=== PATIENT | female | born 1955 | race Caucasian/White ===

== ENCOUNTER 2017-01-23 08:24 | Observation (INO) ==
[2017-01-23] MEDS ORDERED: METOCLOPRAMIDE 10 MG/2 ML VIAL IV STA (09:53)
[2017-01-23] MEDS ORDERED: ONDANSETRON 4 MG/2 ML VIAL IV STA ×2 (09:53→12:06)
[2017-01-23] MEDS ORDERED: ALUM/MAG/SIMETH/LIDO VISC 1:1 30 ML BOTTLE PO STA (09:53)
[2017-01-23] MEDS ORDERED: PANTOPRAZOLE 40 MG VIAL IV STA (09:53)
[2017-01-23] MEDS ORDERED: SODIUM CHLORIDE 0.9% 1,000 ML IV STA (09:53)
--- NOTE | 2017-01-23 09:57 | Emergency Department Note ---
Arrival - Arrival Chief Complaint: Abdominal / Flank Pain Stated Complaint: abd pain,vomiting ED Nursing Triage Note: upper abd pain with vomiting for the past three days. reports that she has episodes about every two hours of pain and then vomiting. denies diarrhea. was seen three years ago with similar s/s and started on prilosec Mode of Arrival: Ambulatory Limitations: No Limitations Source: Patient Time Seen by Provider: 01/23/17 09:53 - History of Present Illness HPI Narrative: This 61-year-old white female presents with 3 days of nausea and vomiting and in fact has had 5 bouts of vomiting this a.m. The patient does complain of heartburn, belching, and water brash with a long-standing history of reflux. She denies a history of peptic ulcer disease, pancreatitis, colitis, gallbladder disease, diarrhea, melena, right red blood per rectum, chills, or fever. Other than nausea and some abdominal cramping she is in no acute medical distress. Onset (ago): day(s) (Patient presents with 3 days of symptoms) Date of Last Menstrual Period: [facility] Allergies/Adverse Reactions: Allergies Allergy/AdvReac Type Severity Reaction Status Date / Time tetanus toxoid, adsorbed Allergy HIVES Verified 01/23/17 08:38 Home Medications: Home Medications Medication Instructions Recorded Confirmed Type Atorvastatin [Lipitor] 10 mg PO DAILY 01/23/17 01/23/17 History Losartan Potassium 100 mg PO DAILY 01/23/17 01/23/17 History Meloxicam 15 mg PO DAILY PRN 01/23/17 01/23/17 History Omeprazole [Prilosec] 20 mg PO DAILY 01/23/17 01/23/17 History Sertraline [Zoloft] 200 mg PO DAILY 01/23/17 01/23/17 History Review of System - Review of System 12 point system: reviewed and no additional remarkable complaints except as stated - Review of System Constitutional: Present: as per HPI Gastrointestinal: Present: as per HPI Medical,Surgical,& Family Hx - Medical History Cardio: History of: Hypertension Psychological: History of: Depression Gastrointestinal: History of: GERD - Social History Smoking Status: Current every day smoker Exam Physical Examination: GENERAL: Obese white female in no acute distress. HEENT: Normocephalic. No trauma. Moist mucous membranes. EOMI. PERRLA. ENT NML NECK: Supple. No adenopathy. CARDIAC: Regular. No murmurs. Heart rate 80 CHEST: Clear to auscultation. No respiratory distress. O2 sat 94 ABDOMEN: Soft. Tender mid epigastrium. Active bowel sounds. EXTREMITIES: No trauma. Normal ROM. No pedal edema. SKIN: No diaphoresis. No rash. NEURO: Alert. Neuro intact. No focal deficits. Vital Signs: Vital Signs Temperature 97.6 F 01/23/17 08:32 Pulse Rate 67 01/23/17 11:33 Respiratory Rate 18 01/23/17 11:33 Blood Pressure 176/100 01/23/17 11:33 O2 Sat by Pulse Oximetry 97 01/23/17 11:33 Course - Reevaluation(s) Reevaluation #1: Advised patient with her recurrent nausea and vomiting and findings on CT that we need admission for GI workup. - Consultations Consultation #1: Discussed with hospitalist service who will admit for further evaluation treatment. Results - Labs CBC & BMP: 01/23/17 10:25 01/23/17 10:25 - Impressions EKG: Sinus rhythm at 66 with normal VT interval and QRS duration. Normal ST segments. Normal EKG. - Diagnostic Findings Procedure: Abdominal x-ray: image reviewed by me, report reviewed by me (Gas patterns consistent with ileus versus early small bowel obstruction bowel gas patterns consistent with ileus or early small bowel obstruction), CT Abdomen and Pelvis: image reviewed by me, report reviewed by me (Evidence of duodenal wall thickening abutting the pancreatic head. Although no abnormality of pancreatic head, suggestive of cancer. 2 large nodes upper abdomen that could be the result of metastatic disease. Diffuse gastric wall thickening, diverticulosis without diverticulitis.) Disposition Clinical Impression: Duodenal wall thickening, Diffuse gastric wall thickening, Mesenteric adenopathy, Diverticulosis, Microscopic hematuria Case discussed with: patient Condition: Guarded Time of Disposition: 13:33
[2017-01-23] MEDS ORDERED: DICYCLOMINE 20 MG/2 ML AMP IM ONE ×2 (09:58→10:30)
--- NOTE | 2017-01-23 10:27 | XRay Report ---
Exam: XR abdomen 2V Date: 01/23/2017 9:54 AM Comparison: 12/20/2013 Indication: Generalized abdominal pain Technique:[Supine and erect abdomen] Findings: Mild gaseous distention of the small bowel in the left abdomen. Air-fluid levels on the erect film with no free air. Vascular calcifications with degenerative changes. Impression: Mild gaseous distention of the small bowel in the left abdomen which could be related to ileus, early SBO, etc. Follow-up x-ray may be helpful for further evaluation. PROCEDURE INTERPRETED AT [facility] DEPARTMENT OF RADIOLOGY Final Report Signed by: Dr. Katty Cedillo
[2017-01-23] MEDS ORDERED: METOCLOPRAMIDE 10 MG/2 ML VIAL ONE (10:30)
[2017-01-23] MEDS ORDERED: ONDANSETRON 4 MG/2 ML VIAL ONE ×2 (10:30→12:34)
[2017-01-23] MEDS ORDERED: ALUM/MAG/SIMETH/LIDO VISC 1:1 30 ML BOTTLE PO ONE (10:30)
[2017-01-23] MEDS ORDERED: PANTOPRAZOLE 40 MG VIAL IV ONE (10:30)
[2017-01-23 10:32] LABS: Basophils % 0.2 % (0.0-0.8); Eosinophils # 0.1 10*3/uL (0.0-0.87); Eosinophils % 0.6 % (0.00-10.9); Hematocrit 40.9 VOL% (35.7-47.0); Hemoglobin 13.8 GM/DL (12.0-16.0); Immature Granulocytes % 0.5 %; Immature Granulocytes Absolute 0.09 #; Lymphocytes # 1.9 10*3/uL (1.4-4.0); Lymphocytes % 10.6 % (21.3-54.2); Mean Corpuscular HGB Conc 33.7 GM/DL (32-36); Mean Corpuscular Hemoglobin 32 PG (27-34); Mean Corpuscular Volume 95.3 FL (87-102); Mean Platelet Volume 10.3 FL (9.6-12.0); Monocytes # 0.9 10*3/uL (0.11-0.8); Monocytes % 5.2 % (1.7-12.7); Neutrophils # 14.6 10*3/uL (1.4-7.4); Neutrophils % 82.9 % (38.7-73.9); Platelet Count 267 T/CUMM (130-400); Red Blood Count 4.29 MC/CUMM (3.8-5.5); Red Cell Distribution Width 12.9 % (9.3-17.3); White Blood Count 17.6 T/CUMM (4-12)
[2017-01-23] MEDS ORDERED: LEVOFLOXACIN INJ 750 MG in PREMIX 1 EACH IV STA (10:41)
[2017-01-23 10:58] LABS: Lactic Acid 0.9 MMOL/L (0.4-2.0)
[2017-01-23 11:12] LABS: Alanine Aminotransferase 22 U/L (13-56); Albumin 3.7 G/DL (3.4-5.0); Alkaline Phosphatase 125 U/L (45-117); Amylase 45 U/L (25-115); Aspartate Amino Transferase 13 U/L (0-37); Bilirubin,Total < 0.39 MG/DL (0.2-1.0); Blood Urea Nitrogen 11 MG/DL (7-18); Calcium 9.4 MG/DL (8.5-10.1); Glucose 107 MG/DL (74-106); Osmolality,Calculated 275.5 MOS/KG (273-304); Potassium 4.2 MMOL/L (3.5-5.1); Sodium 139 MMOL/L (136-145); Total Protein 6.8 G/DL (6.4-8.3); Troponin I Only < 0.015 NG/ML (0.00-0.045)
[2017-01-23] MEDS ORDERED: LEVOFLOXACIN INJ 150 ML IV ONE (11:27)
[2017-01-23 11:57] LABS: Apearance,Urine CLEAR (Clear); Bacteria,Urine Occasional /HPF (Few); Bilirubin,Urine Negative (Negative); Blood, Urine Moderate mg/dL (Negative); Glucose,Urine (UA) Negative (Negative); Ketones,Urine 5 mg/dL (Negative); Mucus,Urine Few /LPF (Occasional); Nitrite,Urine Negative (Negative); Protein,Urine Negative; RBC,Urine 4 /HPF (0-4); Squamous Epithelial Cell,Urine Occasional /HPF (0-10); Urine Color Yellow (Yellow); Urine Specific Gravity 1.015 (1.001-1.035); Urine Urobilinogen < 2.0 EU/DL (0.2-1.0); WBC,Urine 1 /HPF (0-6)
[2017-01-23] MEDS ORDERED: MEPERIDINE 25 MG/1 ML VIAL IV STA (12:06)
[2017-01-23] MEDS ORDERED: MEPERIDINE 25 MG/1 ML VIAL ONE (12:34)
--- NOTE | 2017-01-23 12:55 | CT Report ---
Referring physician: Giorgi Haddad EXAM: CT abdomen and pelvis without contrast DATE: January 23, 2017 COMPARISON: None REASON: Small bowel obstruction TECHNIQUE: Axial images of the abdomen and pelvis were obtained without the use of IV contrast. Oral contrast was administered. Coronal and sagittal reformatted images were also provided. Total DLP is 636.4 mGy*cm. FINDINGS: Lower thorax: There are small fat-containing hernias at the posterior aspects of both hemidiaphragms. There is also minimal atelectasis at the lung bases. ABDOMEN: Liver: Unremarkable. Gallbladder and bile ducts: The gallbladder is somewhat obscured but unremarkable as visualized. The common bile duct is also largely obscured, but no biliary duct dilatation is seen. Pancreas: The pancreatic body and tail are unremarkable. The pancreatic head abuts the duodenum where there is diffuse wall thickening. Involvement of the pancreatic head is not excluded. Spleen: Unremarkable. Adrenals: Unremarkable. Kidneys and ureters: There is a subcentimeter hypodensity at the posterior mid left kidney on image 55. This could represent a small cyst or possibly a small angiomyolipoma. Characterization is difficult due to its small size and volume averaging. No hydronephrosis is present, and no renal or ureteral calculi are seen. PELVIS: Bladder: Unremarkable. Reproductive: The uterus is not identified, suggesting hysterectomy. The ovaries are also not identified. ABDOMEN AND PELVIS: Bowel: There is diffuse wall thickening at the duodenum with mild adjacent fat stranding. This could represent a neoplastic process or infectious/inflammatory process. This wall thickening abuts the pancreatic head, and involvement of the pancreatic at is not excluded. There is also diffuse gastric wall thickening, which is nonspecific and may be related to poor distention. Evaluation for gastric pathology is limited. There are colonic diverticula but no evidence of diverticulitis. There is also no evidence of bowel obstruction. Appendix: The appendix is not identified, but there are no secondary signs of appendicitis. Vasculature: The abdominal aorta is slightly ectatic but not aneurysmal. There is also moderate scattered calcified plaque at the arteries. Peritoneum: No free air or ascites is seen. Lymph nodes: There are one or 2 mildly prominent lymph nodes within the upper abdomen. A lymph node at the medial aspect of the duodenum on image 63 measures 0.8 cm in short axis diameter. These lymph nodes are nonspecific and may be reactive. However, metastatic adenopathy should be considered in the setting of a primary neoplasm. Abdominal/pelvic wall: Unremarkable. Bones: No acute osseous process is identified. IMPRESSION: 1. There is diffuse wall thickening at the duodenum, abutting the pancreatic head and gallbladder. This could represent a neoplastic process or infectious/inflammatory process. Involvement of the pancreatic head is not excluded. 2. There are one or 2 nonspecific mildly prominent lymph nodes within the upper abdomen, one of which is located medial to the duodenum. These lymph nodes may be reactive, but metastatic adenopathy should be considered in the setting of a primary neoplasm 3. There is also diffuse gastric wall thickening, which is nonspecific and may be related to poor distention. Evaluation for gastric pathology is limited. 4. Colonic diverticulosis without evidence of diverticulitis. The CT exam was performed using one or more of the following dose reduction techniques: Automated exposure control and adjustment of the mA and/or kV according to patient size. PROCEDURE INTERPRETED AT [facility] DEPARTMENT OF RADIOLOGY Final Report Signed by: Dr. Gordon Mccollum
[2017-01-23] MEDS ORDERED: ACETAMINOPHEN 325 MG TABLET PO PRN (13:33)
[2017-01-23] MEDS ORDERED: ONDANSETRON 4 MG/2 ML VIAL IV PRN (13:33)
[2017-01-23] MEDS ORDERED: DOCUSATE SODIUM 100 MG CAPSULE PO PRN (13:33)
--- NOTE | 2017-01-23 14:06 | Hospitalist History & Physical ---
Assessment and Plan (1) Diverticulosis Status: Acute Assessment and plan: Noted on CT. Will consult GI for recs. Current Visit: Yes (2) Nausea & vomiting Status: Acute Assessment and plan: IVF. prn Zofran. Current Visit: Yes (3) Abdominal pain Status: Acute Assessment and plan: Admit to med surg. IVF hydration. PRN pain medications. Current Visit: Yes (4) Hypertension Status: Acute Assessment and plan: Restart home medications. Current Visit: Yes (5) Leukocytosis Status: Acute Assessment and plan: Pt. WBC is 17.6. Secondary to underlying infection. Blood cultures pending. IV Levaquin given in ED. Repeat CBC in am. Consult GI. Current Visit: Yes History of Present Illness Chief complaint: abdominal pain History of present illness: Ms. Ospina is a 61 year old white female with a history of gerd, hypertension, depression, and appendectomy that presents to the ED with complaints of abdominal pain and nausea and vomiting for the past 3 days. Pt. reports that pain is currently 6/10 but when at its worst it is 10/10. When asked to point to where pain is located, pt points to epigastric area. Pt reports vomiting at least 20 times over the last 3 days and 5 episodes this am. Pt. states the pain and n/v is worse in the late afternoon and evening between 2:30-6:30. Pt. denies associating or relieving factors. Pt. denies shortness of breath, chest pain, fever, chills, hematuria, diarrhea, and melena. Pt. does report having a similar episode about 2 yrs ago at which time she was scoped. Pt is unaware of any results and denies any follow up regarding the matter. CT of abdomen revealed 'diffuse wall thickening of the duodenum' that could represent a neoplastic process or infectious/inflammatory process. Pt. will be admitted to the hospitalist service. GI will be consulted to assist in the care. Home Medications Medication Instructions Recorded Confirmed Type Atorvastatin [Lipitor] 10 mg PO DAILY 01/23/17 01/23/17 History Losartan Potassium 100 mg PO DAILY 01/23/17 01/23/17 History Meloxicam 15 mg PO DAILY PRN 01/23/17 01/23/17 History Omeprazole [Prilosec] 20 mg PO DAILY 01/23/17 01/23/17 History Sertraline [Zoloft] 200 mg PO DAILY 01/23/17 01/23/17 History Allergies Allergy/AdvReac Type Severity Reaction Status Date / Time tetanus toxoid, adsorbed Allergy HIVES Verified 01/23/17 08:38 Medical,Surgical,& Family Hx - Medical History Cardio: History of: Hypertension Psychological: History of: Depression Gastrointestinal: History of: GERD - Social History Smoking Status: Current every day smoker Have you smoked in the last 12 months: Yes Frequency of Alcohol Use: None Type of Drug Use: None Marital Status: Lives With:: Spouse Functional capacity: independent ambulation - Constitutional Constitutional: Absent: fever(s), increased appetite - EENT Eyes: Absent: blurry vision, loss of vision Ears: Absent: decreased hearing Nose, mouth and throat: Absent: dysphagia, headache(s) - Cardiovascular Cardiovascular: Absent: chest pain at rest, chest pain with activity, dyspnea, dyspnea on exertion, edema - Respiratory Respiratory: Present: cough. Absent: dyspnea - Gastrointestinal Gastrointestinal: Present: abdominal pain, nausea, vomiting. Absent: diarrhea - Genitourinary Genitourinary: Absent: difficulty urinating, urinary frequency - Musculoskeletal Musculoskeletal: Absent: back pain - Neurological Neurological: Absent: confusion, dizziness - Psychiatric Psychiatric: Present: depression. Absent: confusion - Hematologic/Lymphatic Hematologic/Lymphatic: Absent: easy bleeding Exam - Constitutional Vitals: Period Temp Pulse Resp BP Sys/Sanders Pulse Ox Last 24 Hr 97.6 F-97.6 F 67-80 18-18 143-193/76-100 94-98 General appearance: no acute distress, over weight - Head Head exam: Present: normal inspection, normocephalic - Eye Eye exam: Present: EOMI. Absent: periorbital swelling Pupils: Present: KARTHIKEYAN. Absent: dilated - ENT ENT exam: Present: normal exam - Neck Neck exam: Present: normal inspection. Absent: thyromegaly - Respiratory Respiratory exam: Present: clear to auscultation bilaterally. Absent: wheezes - Cardiovascular Cardiovascular exam: Present: regular rate and rhythm. Absent: systolic murmur - GI/Abdominal GI/Abdominal exam: Present: normal bowel sounds, tenderness (epigastric area), soft - Extremities Exam Extremities exam: Present: normal capillary refill, full ROM. Absent: edema - Neurological Exam Neurological exam: Present: alert, oriented X3, normal gait - Psychiatric Psychiatric exam: Present: normal affect, normal mood - Skin Skin exam: Present: normal color, warm, dry Results - Labs CBC & BMP: 01/23/17 10:25 01/23/17 10:25 Lab Results: I have reviewed the past 24 hour labs - Diagnostic Findings Procedure: CT: report reviewed by me
[2017-01-23] MEDS ORDERED: methylPREDNISolone SOD SUC 40 MG/1 ML VIAL ONE (16:08)
[2017-01-23] MEDS: SODIUM CHLORIDE 0.9% 1,000 ML IV SCH (16:46)
[2017-01-23] MEDS: metroNIDAZOLE INJ 500 MG in PREMIX 1 EACH IV SCH (16:56)
[2017-01-24] MEDS: metroNIDAZOLE INJ 500 MG in PREMIX 1 EACH IV SCH ×3 (00:15→16:33)
[2017-01-24 03:23] LABS: Basophils % 0.3 % (0.0-0.8); Eosinophils # 0.2 10*3/uL (0.0-0.87); Eosinophils % 1.4 % (0.00-10.9); Hematocrit 34.1 VOL% (35.7-47.0); Hemoglobin 11.3 GM/DL (12.0-16.0); Immature Granulocytes % 0.4 %; Immature Granulocytes Absolute 0.05 #; Lymphocytes # 2.9 10*3/uL (1.4-4.0); Lymphocytes % 24.4 % (21.3-54.2); Mean Corpuscular HGB Conc 33.1 GM/DL (32-36); Mean Corpuscular Hemoglobin 32 PG (27-34); Mean Corpuscular Volume 97.4 FL (87-102); Mean Platelet Volume 10.9 FL (9.6-12.0); Monocytes # 0.8 10*3/uL (0.11-0.8); Monocytes % 6.7 % (1.7-12.7); Neutrophils # 7.9 10*3/uL (1.4-7.4); Neutrophils % 66.8 % (38.7-73.9); Platelet Count 204 T/CUMM (130-400); White Blood Count 11.9 T/CUMM (4-12)
[2017-01-24 04:02] LABS: Calcium 8.3 MG/DL (8.5-10.1); Magnesium 2.1 MG/DL (1.8-2.4); Potassium 3.9 MMOL/L (3.5-5.1); Risk Ratio 2.72; Thyroid Stimulating Hormone 1.04 uIU/ml (0.358-3.74); VLDL CHOLESTEROL 23.8 MG/DL
[2017-01-24] MEDS: SODIUM CHLORIDE 0.9% 1,000 ML IV SCH (06:10)
[2017-01-24] MEDS ORDERED: LOSARTAN 50 MG TABLET PO SCH (09:00)
[2017-01-24] MEDS ORDERED: SERTRALINE 100 MG TABLET PO SCH (09:00)
[2017-01-24] MEDS ORDERED: ATORVASTATIN 10 MG TABLET PO SCH (09:00)
[2017-01-24] MEDS ORDERED: PANTOPRAZOLE 40 MG TABLET PO SCH (09:00)
--- NOTE | 2017-01-24 10:31 | Hospitalist Progress Note ---
Assessment and Plan - Time spent with patient Time spent with patient: Greater than 30 minutes (1) Duodenitis Status: Acute Assessment and plan: Continue antibiotics, patient is hungry we will start the patient on a diet. I do not anticipate GI performing a scope over the weekend. Patient certainly needs an endoscope and biopsy. Patient is anxious to go home. GI consulted based on the CT findings. Current Visit: Yes (2) Hypertension Status: Acute Assessment and plan: Continue current management. Current Visit: Yes Hospitalist: Subjective Interval history: She is hungry, no complaints or overnight events. Symptoms have improved since admission and initiation of antibiotics. Exam - Constitutional Vitals: Period Temp Pulse Resp BP Sys/Sanders Pulse Ox Last 24 Hr 97.3 F-98.6 F 66-91 18-20 122-193/66-100 92-99 General appearance: normal weight, no acute distress - Head Head exam: Present: normocephalic, atraumatic - Eye Eye exam: Present: EOMI Pupils: Present: KARTHIKEYAN - ENT ENT exam: Present: normal exam - Neck Neck exam: Present: normal inspection - Respiratory Respiratory exam: Present: clear to auscultation bilaterally. Absent: rhonchi, wheezes - Cardiovascular Cardiovascular exam: Present: regular rate and rhythm. Absent: gallop, rubs, systolic murmur - GI/Abdominal GI/Abdominal exam: Present: normal bowel sounds, soft. Absent: distended, firm , guarding, tenderness, rebound - Extremities Exam Extremities exam: Present: normal inspection. Absent: calf tenderness, edema Results - Labs CBC & BMP: 01/24/17 01:54 01/24/17 01:54 Lab Results: I have reviewed the past 24 hour labs
--- NOTE | 2017-01-24 11:29 | EKG Report ---
Stationary ECG Study [facility] ER Test Date: 01/23/2017 11:08:37 AM Pat Name: ALFREDO MAN Department: Room: 219 Gender: F Material Control Manager: : [id number] Requested by: Giorgi Wilson Order Number: [id number] Reading MD: BRYSON LAGUNAS Intervals [place] Rate: 66 P: 64 ID: [id number] QRS: 60 QRSD: 78 T: 33 QT: 391 QTc: 404 Interpretive Statements SINUS RHYTHM Electronically Signed On 01-25-17 15:58:08 CDT by BRYSON LAGUNAS [email or web address]
--- NOTE | 2017-01-24 11:51 | Gastrointestinal Consult Note ---
Assessment and Plan (1) Duodenitis Status: Acute Assessment and plan: The patient has a history of duodenal dilation when last scoped by Dr. Rick back in 2013. She will need to get a follow-up endoscopy done by me sometime in the next week to 2 weeks, once she is discharged. CT scan seems to demonstrate duodenal wall thickening with subcentimeter lymph node enlargement around the duodenum. I strongly suspect this is very severe duodenitis or peptic ulcer disease associated with the patient's Mobic use. She is anxious to leave the hospital can certainly be placed on Protonix orally twice daily provided she is able to tolerate solid food before she is discharged. If she needs IV pain medication and/or IV Protonix because of inability to tolerate solids we should know about this after her supper tonight. Prescriptions have been written for the Protonix as well as some Ultram for pain and some Cipro due to the inflammation around the duodenum in order to decrease bacterial translocation should this involves the duodenal wall and transmural/deep ulcerative process. Current Visit: Yes (2) Abnormal findings on radiological examination of gastrointestinal tract Status: Acute Current Visit: Yes (3) Leukocytosis Status: Acute Assessment and plan: The patient does have a white blood cell count that went up to 17, she may be able to tolerate oral Cipro in order to prevent bacterial translocation of this is occurring in the duodenum. Again we could discharge her this afternoon as she does all right with the suppertime meal. This was discussed with Dr. Santizo who is in agreement with the plan. It was emphasized to the patient she will need to undergo upper endoscopy in order to assess the duodenum visually. Current Visit: Yes (4) Nausea & vomiting Status: Acute Assessment and plan: This was the cause for the patient's admission. There is no true obstruction. Upper endoscopy done back in 2013 failed to show any evidence of cancer in this area so the development of malignancy in such a short period time is unlikely. Current Visit: Yes History of Present Illness Chief complaint: Nausea/vomiting/epigastric and right upper quadrant pain, leukocytosis History of present illness: Ms. Ospina is a 61 year old female who presents with 10 out of 10 epigastric and right upper quadrant pain which is been slowly increasing over the last 2-3 days with nausea mostly but also some clear vomitus yesterday. The patient has been taking Mobic 15 mg daily for the last 2-[address] scan which demonstrated some duodenal wall thickening proximally likely due to duodenitis with the Mobic use. She denies melena or bright red blood per rectum, she has not had any coffee ground emesis. The patient states that she had had a colonoscopy done over [facility] possibly with Dr. Feliz in the last 2 years and that this demonstrated 2 polyps that were removed. She does not recall being told when to repeat the colonoscopy. The patient states that she has had previous upper endoscopy done here at this hospital, and indeed Dr. Rick had done this procedure for her on 12/22/13 demonstrating no evidence of esophagitis just a small hiatal hernia and a normal-appearing fundus body. The duodenal bulb and second portion of the duodenum are slightly dilated but otherwise without ulceration or other changes. He does note that the patient had a normal HIDA scan and ultrasound of the gallbladder. The patient has been using Mobic on a daily basis because of recent hip pain. She does not recall having any fevers or chills. CT scan as noted above does show diffuse wall thickening in the duodenum with mild adjacent fat stranding suspicious for duodenitis versus peptic ulcer disease, this suggests abuts the pancreatic head and diffuse gastritis is also noted as well. The colonic diverticuli does not show any evidence of diverticulitis, nor is there any evidence of small bowel obstruction. There are 1 or 2 prominent lymph nodes in the upper abdomen but these are subcentimeter in size, near the duodenum. The patient has been having some mild chills but no actual fever. Home Medications Medication Instructions Recorded Confirmed Type Atorvastatin [Lipitor] 10 mg PO DAILY 01/23/17 01/23/17 History Losartan Potassium 100 mg PO DAILY 01/23/17 01/23/17 History Meloxicam 15 mg PO DAILY PRN 01/23/17 01/23/17 History Omeprazole [Prilosec] 20 mg PO DAILY 01/23/17 01/23/17 History Sertraline [Zoloft] 200 mg PO DAILY 01/23/17 01/23/17 History Allergies Allergy/AdvReac Type Severity Reaction Status Date / Time tetanus toxoid, adsorbed Allergy HIVES Verified 01/23/17 08:38 Medical,Surgical,& Family Hx - Medical History Cardio: History of: Hypertension Psychological: History of: Depression Gastrointestinal: History of: GERD - Surgical History HEENT Surgeries: Surgical HX of: Tonsilectomy & Adenoidectomy - Family History Family History: Reports;: Family Cancer, Family Hypertension Denies;: Family Stroke - Social History Smoking Status: Current every day smoker Frequency of Alcohol Use: None Type of Drug Use: None Review of systems: Constitutional: Denies fever, but positive for nausea, vomiting and chills Eyes: Denies dry eyes, and scleral icterus HENT: Denies headaches Cardiovascular: Denies acute chest pain and claudication Respiratory: Denies shortness of breath, wheezing, and difficulty breathing, she does have some cough associated with her smoking history. Gastrointestinal: As noted in the HPI Genitourinary: Denies dysuria and hematuria Neurologic: Denies vision loss, and loss of sensation Musculoskeletal: Admits to joint swelling, joint stiffness, and muscular weakness Psychiatric: Denies depression and yumiko symptoms Heme-Lymph: Denies easy bruising, lymph node enlargement or tenderness, night sweats, excessive bleeding Allergies-immunologic: Denies pruritus and rhinorrhea Exam - Constitutional Vitals: Period Temp Pulse Resp BP Sys/Sanders Pulse Ox Last 24 Hr 97.3 F-98.6 F 66-91 18-20 122-166/66-100 92-99 General appearance: no acute distress - Head Head exam: Present: normocephalic, atraumatic - Eye Eye exam: Present: EOMI Pupils: Present: KARTHIKEYAN - ENT ENT exam: Present: normal exam - Neck Neck exam: Absent: tenderness, thyromegaly - Respiratory Respiratory exam: Present: rhonchi (Down the lower lung santiago). Absent: stridor, wheezes - Cardiovascular Cardiovascular exam: Present: regular rate and rhythm - GI/Abdominal GI/Abdominal exam: Present: normal bowel sounds, tenderness (Moderate tenderness to deep palpation in the epigastric and right upper quadrant regions. ), soft, other (Rectal exam was brown and guaiac negative. Good tone no external fissures or fistulas.). Absent: distended, guarding, rebound - Extremities Exam Extremities exam: Present: full ROM. Absent: edema - Neurological Exam Neurological exam: Present: alert, oriented X3, CN II-XII intact. Absent: motor sensory deficit - Psychiatric Psychiatric exam: Present: normal affect, normal mood - Skin Skin exam: Present: warm Results - Labs CBC & BMP: 01/24/17 01:54 01/24/17 01:54
--- NOTE | 2017-01-24 15:21 | Discharge Summary ---
Hospital Course - Hospital Course Hospital Course: Ms. Ospina was admitted for evaluation of nausea, vomiting and abdominal pain. CT of the abdomen revealed duodenitis and adenopathy surrounding. She is initiated on IV antibiotics and admitted for evaluation by gastroenterology. Patient did have an elevated white blood cell count which returned to normal with initiation of antibiotics. During her brief stay her symptoms dramatically improved. She was cleared by gastroenterology for discharge and follow-up in 2 weeks for EGD. This was felt to be secondary to her use of NSAIDs which will be discontinued at discharge. She will be initiated on PPI twice daily in addition to antibiotics. By discharge she had met maximum benefit of hospitalization. I spent 33 minutes coordinating this discharge. - Time spent with patient Time with patient DS: Greater than 30 minutes Diagnosis - Discharge Diagnosis (1) Duodenitis Status: Acute (2) Hypertension Status: Acute Discharge Plan - Discharge Data Disposition: Disch To Home/Self Care Condition at Discharge: Stable Discharge Diet: advance to your usual diet Activity: resume usual activities as tolerated - Discharge Medications New Pantoprazole Tab [Protonix Tab] 40 mg PO BID #60 tablet Ciprofloxacin HCl [Ciprofloxacin Tab] 500 mg PO BID #12 tablet Continue Atorvastatin [Lipitor] 10 mg PO DAILY Losartan Potassium 100 mg PO DAILY Sertraline [Zoloft] 200 mg PO DAILY Discontinued Omeprazole [Prilosec] 20 mg PO DAILY Meloxicam 15 mg PO DAILY PRN PRN Reason: Pain - Follow Up or Referral - Forms/Instructions Exam - Constitutional Vitals: Period Temp Pulse Resp BP Sys/Sanders Pulse Ox Last 24 Hr 97.3 F-98.6 F 66-91 18-20 127-166/68-93 92-99 General appearance: normal weight, no acute distress - Head Head exam: Present: normal inspection, normocephalic, atraumatic - Eye Eye exam: Present: EOMI Pupils: Present: KARTHIKEYAN - ENT ENT exam: Present: normal exam - Neck Neck exam: Present: normal inspection - Respiratory Respiratory exam: Present: clear to auscultation bilaterally. Absent: accessory muscle use, prolonged expiratory phase, wheezes - Cardiovascular Cardiovascular exam: Present: regular rate and rhythm. Absent: bradycardia, irregular rhythm, systolic murmur - GI/Abdominal GI/Abdominal exam: Present: normal bowel sounds. Absent: ascites, distended, hypoactive bowel sounds - Extremities Exam Extremities exam: Present: normal inspection Discharge Results Procedures and tests throughout hospitalization: Pending Orders 01/23/17 14:31 Blood Culture Stat 01/25/17 04:00 Basic Metabolic Panel IN AM Comp Blood Count Auto Diff IN AM Magnesium IN AM Labs on day of discharge: Labs from last 24 hours 01/24/17 01/24/17 01/24/17 01:54 01:54 01:54 WBC 11.9 D RBC 3.50 L Hgb 11.3 L D Hct 34.1 L MCV 97.4 MCH 32 MCHC 33.1 RDW 13.0 Plt Count 204 D MPV 10.9 Neut % (Auto) 66.8 Lymph % (Auto) 24.4 Irwin % (Auto) 6.7 Eos % (Auto) 1.4 Baso % (Auto) 0.3 Neut # (Auto) 7.9 H Lymph # (Auto) 2.9 Irwin # (Auto) 0.8 Eos # (Auto) 0.2 Baso # (Auto) 0.0 Immature Gran % 0.4 Nucleated RBC % 0.0 Immature Gran # 0.05 Nucleated RBCs # 0.00 Sodium 143 Potassium 3.9 Chloride 108 H Carbon Dioxide 27 Anion Gap 11.9 BUN 10 Creatinine 0.70 GFR Calculation 101 BUN/Creatinine Ratio 14.00 Glucose 83 Calculated Osmolality 282.0 Calcium 8.3 L Magnesium 2.1 Triglycerides 119 Cholesterol 98 LDL Cholesterol 49.0 VLDL Cholesterol 23.8 HDL Cholesterol 36 L Heart Disease Risk Ratio 2.72 Free T4 1.09 TSH 3rd Generation 1.040 Preliminary micro results at discharge 01/23/17 14:31 Blood Culture - Preliminary Blood No growth at 1 day 01/23/17 14:31 Blood Culture - Preliminary Blood No growth at 1 day DS: Provider Date of admission: 01/23/17 13:32 Primary care physician: . No PCP Attending physician on admission: Hemalatha Santizo MD Consults: 01/23/17 14:30 Consult to Physician [CONS] Routine Comment: Consulting Provider: Home Kapoor Consulting Provider Notified: Yes Person Notified: Dr kapoor Date Notified: 01/23/17 Time Notified: 17:50 Consult Notification Comment: will see pt in am Discharging clinician: Hemalatha Santizo MD Expected date of discharge: 01/24/17
[2017-01-24 17:16] VITALS: BP 150/73
== END 2017-01-24 18:10 | disposition home or self-care (01) ==
LOC: N.ED 08:24 → N.EDINP 13:32 → INTOOBSV 13:32 → N.EDINP 16:24 → N.2E 16:34
PROVIDERS: ADMIT Internal Medicine; ATTEND Internal Medicine